=== PATIENT | female | born 1945 | race African-American/Black ===

== ENCOUNTER 2022-05-19 05:31 | Observation (INO) | payer BC, MEDICARE ==
[2022-05-15 09:52] LABS: BASOPHILS % 0.6 % (0.0-1.0); EOSINOPHILS # (AUTO) 0.2 (0.0-0.4); EOSINOPHILS % 2.7 % (0.0-6.0); HEMATOCRIT 34.5 % (34.2-44.1); LYMPHOCYTES # (AUTO) 2.4 (1.0-3.2); LYMPHOCYTES % 38.6 % (18.0-39.1); MEAN CORPUSCULAR HEMOGLOBIN 26.8 pg (28-32); MEAN CORPUSCULAR HGB CONC 31.9 g/dL (31-35); MEAN CORPUSCULAR VOLUME 84.1 fL (81-99); MONOCYTES # (AUTO) 0.4 (0.2-0.8); MONOCYTES % 6.6 % (4.4-11.3); NEUTROPHILS # (AUTO) 3.2 (2.1-6.9); NEUTROPHILS % 51.5 % (38.7-80.0); PLATELET COUNT 226 x10e3/uL (140-360)
[2022-05-15 10:30] LABS: ANION GAP 14.8 mmol/L (8-16); CALCIUM 9.2 mg/dL (8.4-10.2); CREATININE, SERUM 1.46 mg/dL (0.57-1.11); POTASSIUM 3.8 mmol/L (3.5-5.1)
[~2022-05-19] VITALS: Ht 172.7 cm; Wt 67.1 kg
[~2022-05-19 05:31] MED LIST: HYDROCHLOROTHIA25 MG PO; LEVOTHYROXINE88 MCG PO; LISINOPRIL40 MG PO; METFORMIN HCL500 MG PO; MULTI-VITAMIN1 EACH PO; SIMVASTATIN40 MG PO
[2022-05-19] MEDS ORDERED: TRANEXAMIC ACID 20 ML ONE (06:16)
[2022-05-19] MEDS ORDERED: Vancomycin IV 1,000 MG ONE (06:16)
[2022-05-19] MEDS ORDERED: SODIUM CHLORIDE 0.9% 500ML 500 ML ONE (06:17)
[2022-05-19] MEDS ORDERED: DEXAMETHASONE SOD PHOS 10 MG/1 ML VIAL ONE (06:25)
[2022-05-19] MEDS ORDERED: CELECOXIB 200 MG CAP ONE (06:25)
[2022-05-19] MEDS ORDERED: GABAPENTIN 300 MG CAP ONE (06:26)
[2022-05-19] MEDS ORDERED: ACETAMINOPHEN 1000 MG/100 ML 100 ML IV ONE (06:54)
[2022-05-19] MEDS ORDERED: ROPIVACAINE 246.25 MG, EPINEPHRINE HCL 1:1000 1ML 0.5 MG, CLONIDINE HCL 0.08 MG, KETORO... INJ ONE ×5 (08:00)
[2022-05-19] MEDS ORDERED: HYDROCODONE/APAP 7.5MG-325MG 1 EA TAB PO PRN (08:15)
[2022-05-19] MEDS ORDERED: DIPHENHYDRAMINE HCL INJ 50 MG/ML VIAL IV PRN (08:15)
[2022-05-19] MEDS ORDERED: DOCUSATE SODIUM 100 MG CAP PO PRN (08:15)
[2022-05-19] MEDS ORDERED: ZOLPIDEM TARTRATE 5 MG TAB PO PRN (08:15)
[2022-05-19] MEDS ORDERED: ONDANSETRON HCL INJ 2MG/ML 2ML 2 MG/ML VIAL IV PRN (08:15)
[2022-05-19] MEDS ORDERED: HYDROCODONE/APAP 5MG-325MG TAB PO PRN (08:15)
[2022-05-19] MEDS ORDERED: KETOROLAC TROMETHAMINE 30 MG/ML VIAL IV PRN (08:15)
[2022-05-19] MEDS ORDERED: ACETAMINOPHEN 650 MG SUPP PR PRN (08:15)
[2022-05-19] MEDS ORDERED: HYDROMORPHONE 1MG/1ML INJ ONE (08:43)
[2022-05-19 09:00] VITALS: BP 135/66
[2022-05-19 09:06] VITALS: BP 135/66
[2022-05-19] MEDS: ASPIRIN 325 MG TAB PO SCH ×2 (09:36→16:43)
[2022-05-19] MEDS ORDERED: SODIUM CHLORIDE 0.9% 1000ML 1,000 ML IV SCH (09:45)
[2022-05-19 11:33] VITALS: BP 142/71
[2022-05-19] MEDS ORDERED: POVIDONE IODINE 0.05% 0.05 % ML PO ONE (11:46)
[2022-05-19] MEDS ORDERED: EPHEDRINE SULFATE INJ 50 MG/ML VIAL ONE (11:46)
[2022-05-19] MEDS ORDERED: LIDOCAINE HCL 2% LOCAL INJ 5 ML SDV VIAL INJ ONE (11:46)
[2022-05-19] MEDS ORDERED: ONDANSETRON HCL INJ 2MG/ML 2ML 2 MG/ML VIAL ONE (11:46)
[2022-05-19] MEDS ORDERED: PROPOFOL IV EMULSION 10 MG/ML 20 ML VIAL ONE (11:46)
[2022-05-19] MEDS ORDERED: SEVOFLURANE INHAL SOLN 250 ML PEN BTL ONE (11:46)
[2022-05-19] MEDS ORDERED: ROPIVACAINE 0.5% 5 MG/ML 30 ML SDV ONE (12:10)
[2022-05-19] MEDS ORDERED: MIDAZOLAM HCL 2 MG/2 ML VIAL ONE (12:14)
[2022-05-19] MEDS ORDERED: FENTANYL CITRATE/PF 100MCG/2 ML INJ ONE (12:14)
[2022-05-19 16:39] VITALS: BP 133/78
[2022-05-19] MEDS ORDERED: CELECOXIB 200 MG CAP PO SCH (17:00)
[2022-05-20] MEDS ORDERED: ACETAMINOPHEN 1000 MG/100 ML IV PRN (08:15)
== END 2022-05-19 16:55 | disposition home or self-care (01) ==
LOC: OR 05:31 → PACU V 08:09 → MED/SURG 09:09
PROVIDERS: ADMIT Specialist; ATTEND Specialist
DX: M17.12 Unilateral primary osteoarthritis, left knee (principal); E11.9 Type 2 diabetes mellitus without complications; I10 Essential (primary) hypertension; E89.0 Postprocedural hypothyroidism; Z90.49 Acquired absence of other specified parts of digestive tract; Z88.2 Allergy status to sulfonamides; Z90.710 Acquired absence of both cervix and uterus; Z79.84 Long term (current) use of oral hypoglycemic drugs; Z01.812 Encounter for preprocedural laboratory examination; Z01.818 Encounter for other preprocedural examination; Z20.822 Contact with and (suspected) exposure to COVID-19
CPT/HCPCS: 0223U; 27447; 36415 ×2; 71046; 73560; 80048; 82948; 85025; 86850; 86900; 86920; 94799; 97110; 97116; 97162; 97530; C1713; G0378; J0131; J0171; J0690; J1100; J1170; J1885; J2001; J2250; J2405; J2704; J2795; J3010; J3370; J7030; J7040; C1776